=== PATIENT | female | born 1985 | race Caucasian/White ===

== ENCOUNTER 2017-02-19 22:16 | Emergency (ER) | payer OTHER, SELFPAY ==
[2017-02-19 22:27] VITALS: BP 95/68; PULSE 86; O2SAT 98
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
== END 2017-02-19 22:41 | disposition home or self-care (01) ==
LOC: ED 22:16
DX: Z48.02 Encounter for removal of sutures (principal)
CPT/HCPCS: 99281